=== PATIENT | male | born 1950 | race African-American/Black ===

== ENCOUNTER → 2019-10-09 | Outpatient (CLI) | payer MEDICARE, OTHER ==
[~2019-10-09] MED LIST: ACETAMINOPHEN650 M5 PO; CARVEDILOL6.25 MG PO; FOLIC ACID0.4 MG PO; LISINOPRIL20 MG PO; MINIPRIN81 MG PO; ZOCOR40 MG PO; ZPAK PO; [UNRECOGNIZED DRUG - REMARK]; [UNRECOGNIZED DRUG - REMARK]
--- NOTE | 2019-10-09 13:56 | 2DMMODE ---
[place] [address] 2 D/M-MODE ECHOCARDIOGRAM Name: IWONA NG Room: [facility]#: [id number] Admission: 10/09/19 Attend Phys: Jose Rafael Guadarrama, Discharge: Date of : 52 Date of Service: 10/09/19 1355 Report #: [id number] THIS REPORT FOR: cc: Jacqueline Belle MD, Teresa MD Holkins, John M. MD [facility] ~ APPROVED REPORT Study performed: 10/09/2019 07:51:31 EXAM: Comprehensive 2D, Doppler, and color-flow Echocardiogram Patient Location: Out-Patient BSA: 1.90 HR: 78 bpm BP: 142/72 mmHg Other Information Study Quality: Good Indications Atrial Fibrillation Chest Pain 2D Dimensions IVSd: 11.94 (7-11mm) LVOT Diam: 20.17 (18-24mm) LVDd: 49.01 mm PWd: 9.93 (7-11mm) Ascending Ao: 29.82 (22-36mm) LVDs: 31.50 (25-40mm) Aortic Root: 30.17 mm Volumes Left Atrial Volume (Systole) LA ESV Index: 22.80 mL/m2 Aortic Valve AoV Peak Ra.: 1.30 m/s AO Peak Gr.: 6.71 mmHg LVOT Max P.31 mmHg AO Mean Gr.: 3.67 mmHg LVOT Mean P.55 mmHg LVOT Max V: 0.91 m/s AO V2 VTI: 21.71 cm LVOT Mean V: 0.57 m/s MICHEL (VTI): 2.43 cm2 LVOT V1 VTI: 16.53 [place] [address] 2 D/M-MODE ECHOCARDIOGRAM Name: IWONA NG Room: [facility]#: [id number] Admission: 10/09/19 Attend Phys: Jose Rafael Guadarrama, Discharge: Date of : 52 Date of Service: 10/09/19 1355 Report #: [id number] MV Decel. Time: 165.76 ms MV E Max Ra.: 0.70 m/s MV PHT: 48.07 ms MVA (PHT): 4.58 cm2 TDI E/Lateral E': 14.00 E/Medial E': 11.67 Medial E' Ra.: 0.06 m/s Lateral E' Ra.: 0.05 m/s Pulmonary Valve PV Peak Ra.: 0.93 m/s PV Peak Gr.: 3.45 mmHg Tricuspid Valve RAP Estimate: 5.00 mmHg TR Peak Gr.: 25.19 mmHg RVSP: 30.19 mmHg PA Pressure: 30.19 mmHg Left Ventricle The left ventricle is normal size. There is normal LV segmental wall motion. There is normal left ventricular wall thickness. Left ventricular systolic function is mildly decreased. LVEF is 50%. This study is not technically sufficient to allow evaluation of the LV diastolic function due to atrial fibrillation. Right Ventricle The right ventricle is normal size. The right ventricular systolic function is normal. Pacemaker lead is present in the right ventricle. Atria Left atrium is mildly dilated. Pacemaker lead is present in the right atrium. Aortic Valve The aortic valve is normal in structure. No aortic regurgitation is present. There is no aortic valvular stenosis. Mitral Valve The mitral valve is normal in structure. Mild mitral regurgitation. No evidence of mitral valve stenosis. Tricuspid Valve The tricuspid valve is normal in structure. Mild tricuspid regurgitation[place] [address] 2 D/M-MODE ECHOCARDIOGRAM Name: IWONA NG Room: [facility]#: [id number] Admission: 10/09/19 Attend Phys: Jose Rafael Guadarrama, Discharge: Date of : 52 Date of Service: 10/09/19 1355 Report #: [id number] The pulmonary valve is normal in structure. There is no pulmonic valvular regurgitation. Great Vessels The aortic root is normal in size. IVC is normal in size and collapses >50% with inspiration. Pericardium There is no pericardial effusion. <Conclusion> The left ventricle is normal size. There is normal left ventricular wall thickness. Left ventricular systolic function is mildly decreased. LVEF is 50%. This study is not technically sufficient to allow evaluation of the LV diastolic function due to atrial fibrillation. The right ventricle is normal size. Left atrium is mildly dilated. Pacemaker lead is present in the right atrium. The aortic valve is normal in structure. The mitral valve is normal in structure. Mild mitral regurgitation. The tricuspid valve is normal in structure. Mild tricuspid regurgitation. IVC is normal in size and collapses >50% with inspiration. There is normal LV segmental wall motion. Pacemaker lead is present in the right ventricle. <ELECTRONICALLY SIGNED> By: Hector Coyle MD, FACC 10/09/19 1355 1355 1355 Hector Coyle MD, FACC /INF
--- NOTE | 2019-10-09 18:12 | CARDNUC ---
[place] [address] CARDIAC NUCLEAR IMAGING REPORT Name: IWONA NG Room: [facility]#: [id number] Admission: 10/09/19 Attend Phys: Jose Rafael Guadarrama, Discharge: Date of : 52 Date of Service: 10/09/19 1811 Report #: [id number] THIS REPORT FOR: cc: Jacqueline Belle MD, Teresa MD Liston,Jose Rafael Shanks MD [facility] ~ APPROVED REPORT Imaging Protocol: Rest Tc-99m/Stress Tc-99m 1 day Study performed: 10/09/2019 08:30:00 Indication: PAFib, Atrioventricular Block, Diaphoresis, Lightheadedness, weakness. Patient Location: Out-Patient Stress Tech: Zoë Palumbo Stress Nurse: Iwona Jimenez RN NM Tech:EVE Allen Ht: 5 ft 4 in Wt: 185 lbs BSA: 1.89 m2 BMI: 31.75 Medical History Medical History: Atrioventricular block, PAFib, SSS, PPM, Lightheadedness, Diaphoresis, Weakness, LE edema, HTN, HLD, DM, family HX of CAD, past smoker. Medications: Atorvastatin, Diltiazem, Flecainide, Lisinopril-HCTZ, Xarelto. Allergies: No known drug allergies Cardiac Risk Factors: Age, DM, FHX of CAD, HTN, Hyperlipidemia, Past Smoker, PAFib, SSS, PPM, Atrioventricular Block. Previous Cardiac Procedures: PPM Pretest Chest Pain Characteristics: No chest pain Exercise History: Indeterminate Physical Disabilities: PPM. Meds Held (24 hrs): Patient held all medications. Resting Data Rest SPECT myocardial perfusion imaging was performed in supine position 30 minutes following the intravenous injection of 11.5 mCi of Tc-99m Sestamibi. Time of rest injection: 0850 Date: 10/09/2019 The images were gated to evaluate regional wall motion and calculate left ventricular ejection fraction. Administration Route: [place] [address] CARDIAC NUCLEAR IMAGING REPORT Name: IWONA NG Room: [facility]#: [id number] Admission: 10/09/19 Attend Phys: Jose Rafael Guadarrama, Discharge: Date of : 52 Date of Service: 10/09/19 1811 Report #: [id number] Administration Site: Right AC Pharmacologic Stress Pharmacologic stress test was performed by injecting Regadenoson 0.4 mg IV push over 10-15 seconds immediately followed by the intravenous injection of 36.0 mCi of Tc-99m Sestamibi. Time of stress injection: 1020 Date: 10/09/2019 Administration Route: IV Administration Site: Right AC Gated Stress SPECT was performed 40 minutes after stress injection. The images were gated to evaluate regional wall motion and calculate left ventricular ejection fraction. Prone imaging was performed. Stress Test Details Stress Test: Pharmacologic stress testing performed using 0.4 mg of regadenoson per 5 mL given IV over 10 seconds. Reason for pharmacologic stress test: PPM.. HR Max Heart Rate (APMHR): 153 bpm Resting HR: 60 bpm Target HR (85% APMHR): 130 bpm Max HR Achieved: 91 bpm % of APMHR: 59 Recovery HR: 62 bpm BP Resting BP: 117/82 mmHg Max BP: 159/79 mmHg Recovery BP: 129/73 mmHg ECG Resting ECG: AV paced rhythm Stress ECG: AV paced rhythm ST Change: None Arrhythmia: None Recovery ECG: AV paced rhythm Recovery ST Change: None Recovery Arrhythmia: None Clinical Reason for Termination: Completed protocol Stress Symptoms: None Exercise duration: 00 min 00 sec Exercise capacity: 1.00 METs The patient had no significant symptoms [place] [address] CARDIAC NUCLEAR IMAGING REPORT Name: BHARATH NGLUDA Bliss Room: [facility]#: [id number] Admission: 10/09/19 Attend Phys: Jose Rafael Guadarrama, Discharge: Date of : 52 Date of Service: 10/09/19 1811 Report #: [id number] Nurse Comments A 68 year old male presented with a PPM for a sitting Lexiscan r/t lightheadedness, diaphoresis, weakness. Test well tolerated. Recovery unremarkable with PO caffeine. Patient was escorted by staff to Nuclear Medicine for imaging. Patient was stable and stated he felt good at that time. Stress ECG Conclusion The baseline twelve-lead EKG shows AV sequential pacing. EKGs obtained during and post Lexiscan infusion show AV sequential pacing. Study Quality Study: Good Artifact: Mild Diaphragmatic artifact Study Data At rest, the left ventricular ejection fraction was 65%.. Post stress, the left ventricular ejection was 63%.. TID = 1.02. Perfusion Perfusion images obtained at rest and post Lexiscan stress show photopenia in the inferior wall. There was no reversibility noted. Review of the raw data shows diaphragmatic attenuation artifact. Wall motion in this region is normal. There were no significant defects to suggest infarct or ischemia. Wall Motion Normal left ventricular wall motion. Nuclear Conclusion ECG Findings: non-diagnostic Clinical Findings: negative for ischemia Nuclear Findings: negative for ischemia Exercise Capacity: not assessed Left Ventricular Function: normal Risk Study: low Perfusion images show no defect to suggest infarct or ischemia. Left ventricular systolic function appears preserved on gated studies. This is a low risk study. <Conclusion> The baseline twelve-lead EKG shows AV [place] [address] CARDIAC NUCLEAR IMAGING REPORT Name: IWONA NG Room: [facility]#: [id number] Admission: 10/09/19 Attend Phys: Jose Rafael Guadarrama, Discharge: Date of : 52 Date of Service: 10/09/19 1811 Report #: [id number] obtained during and post Lexiscan infusion show AV sequential pacing. <ELECTRONICALLY SIGNED> By: Jose Rafael Guadarrama MD, FACC 10/09/191810 10 10 Jose Rafael Guadarrama MD, FACC /INF
== END ==
LOC: M.CRD 09-29 08:22 → M.NUC 10-04 14:00 → M.CRD 10-04 15:00 → M.NUC 10-04 16:00 → M.CRD 07:41
PROVIDERS: ATTEND Internal Medicine Cardiovascular Disease
DX: I08.1 Rheumatic disorders of both mitral and tricuspid valves (principal); M25.511 Pain in right shoulder; R61 Generalized hyperhidrosis; I48.0 Paroxysmal atrial fibrillation

== ENCOUNTER 2020-04-24 11:35 | Emergency (ER) | payer MEDICARE, OTHER ==
[~2020-04-24] VITALS: Ht 162.6 cm; Wt 83.9 kg
[2020-04-24] MEDS ORDERED: LISINOPRIL-HCT1 EAC1 PO (11:48)
[2020-04-24] MEDS ORDERED: DILTIAZEM ER180 M2 PO (11:48)
[2020-04-24] MEDS ORDERED: LIPITOR 40 MG T40 M1 PO (11:48)
[2020-04-24] MEDS ORDERED: COQ-1030 MG PO (11:49)
[2020-04-24] MEDS ORDERED: FISH OIL 1,0001 EAC9 PO (11:49)
[2020-04-24] MEDS ORDERED: FLAXSEED OIL1000 MG PO (11:49)
[2020-04-24] MEDS ORDERED: XARELTO20 MG PO (11:49)
[2020-04-24] MEDS ORDERED: FLECAINIDE ACET50 M2 PO (11:49)
[2020-04-24 11:52] LABS: ABSOLUTE EOSINOPHILS 0.1 thou/uL (0.0-0.7); NUCLEATED RBCS 0 /100WBC; WBC 13.7 thou/uL (4.0-11.0)
[2020-04-24 11:56] LABS: ABSOLUTE BASOPHILS 0.1 thou/uL (0.0-0.2); ABSOLUTE LYMPHOCYTES 2.7 thou/uL (0.8-5.3); ABSOLUTE NEUTROPHILS 9.8 thou/uL (1.6-8.1); BASOPHILS 0.6 %; EOSINOPHILS 0.4 %; HEMATOCRIT 44.4 % (42.0-52.0); HEMOGLOBIN 14.6 gm/dL (14.0-18.0); MCH 30.2 pg (26.0-34.0); MCHC 32.9 g/dL (28.0-37.0); MCV 91.8 fL (80.0-100.0); MONOCYTES 7.4 %; MPV 8.3 fl. (7.2-11.1); PLATELET COUNT* 201 thou/uL (150-400); POLYS 71.6 %; RBC 4.84 mil/uL (4.50-6.00); RDW-CV 14.6 % (10.5-14.5)
[2020-04-24 12:02] LABS: CALCIUM 9.6 mg/dL (8.5-10.1); CREATININE 1.1 mg/dL (0.6-1.3)
[2020-04-24 12:04] LABS: APTT 28.5 Seconds (25.0-31.3); INR 1.2; PROTIME 12.3 Seconds (9.20-11.50)
[2020-04-24 12:14] LABS: ALBUMIN 3.9 g/dL (3.4-5.0); CK-MB MASS 2.2 ng/mL (<0.5-3.6); MAGNESIUM 2.2 mg/dL (1.8-2.4); TOTAL BILIRUBIN 0.6 mg/dL (<0.1-1.0); TOTAL PROTEIN 7.2 g/dL (6.4-8.2)
[2020-04-24 14:20] VITALS: BP 111/67
--- NOTE | 2020-04-24 16:33 | EKG ---
[place] [address] ELECTROCARDIOGRAM REPORT Name: IWONA NG Room: [facility]#: [id number] Admission: 04/24/20 Attend Phys: Discharge: 04/24/20 Date of : 52 Date of Service: 04/24/20 1141 Report #: [id number] THIS REPORT FOR: //name// [facility] ED Test Date: 2020-04-24 Test Time: 11:41:11 Pat Name: IWONA NG Department: Room: Gender: Radiation Therapist: : 1950 Requested By: Thierry Melvin Order Number: [id number] MD: Ross Del Real Measurements Intervals Siren Rate: 84 P: 195 CT: 137 QRS: -79 QRSD: 167 T: 97 QT: 443 QTc: 524 Interpretive Statements Atrial-ventricular dual-paced rhythm No further analysis attempted due to paced rhythm Compared to ECG 12/03/2012 18:10:15 No significant changes Electronically Signed On 04-24-2020 16:33:06 [employer] by Ross Del Real [email or web address] <ELECTRONICALLY SIGNED> By: Ross Del Real MD, [facility] 04/24/20 1633 1141 1141 Ross Del Real MD, [facility] /EPI
== END 2020-04-24 14:21 | disposition home or self-care (01) ==
LOC: M.ERS 11:35
PROVIDERS: Family Medicine
DX: R07.89 Other chest pain (principal); I10 Essential (primary) hypertension; E78.5 Hyperlipidemia, unspecified; E78.00 Pure hypercholesterolemia, unspecified; Z91.018 Allergy to other foods